=== PATIENT | male | born 1950 | race Two or more races ===

== ENCOUNTER 2023-10-31 17:39 | Emergency (ER) | payer OTHER ==
[~2023-10-31] VITALS: Ht 172.7 cm; Wt 75.0 kg
[2023-10-31 18:48] LABS: Basophils # (auto) 0.1 10 ^3/uL (0-0.2); Basophils % (auto) 1.2 % (0.0-2.0); Chloride 107 mmol/L (98-107); Eosinophils # (auto) 0.2 10 ^3/uL (0-0.8); Eosinophils % (auto) 2.9 % (0.0-7.0); Hematocrit 44.1 % (41.0-53.0); Hemoglobin 14.5 g/dL (13.5-17.5); Lymphocytes # (auto) 1.8 10 ^3/uL (0.4-5.4); Lymphocytes % (auto) 27.7 % (10.0-50.0); Mean Corpuscular Hemoglobin 29.9 pg (28.0-32.0); Mean Corpuscular Volume 90.7 fL (80.0-100.0); Monocytes # (auto) 0.7 10 ^3/uL (0-1.3); Monocytes % (auto) 10.3 % (0.0-12.0); Neutrophils # (auto) 3.7 10 ^3/uL (1.6-8.6); Neutrophils % (auto) 57.9 % (37.0-80.0); Nucleated Red Blood Cells % 0.2 %; Potassium 4.4 mmol/L (3.5-5.1); Red Blood Cells 4.86 10^6/uL (4.5-5.90); Red Cell Distribution Width 14.4 % (11.8-14.3); Sodium 139 mmol/L (136-145); White Blood Cell 6.4 10^3/uL (4.4-10.8)
[2023-10-31 18:49] LABS: Anion Gap 4 (5-15); Carbon Dioxide 28 mmol/L (20-30)
[2023-10-31 18:50] LABS: Calcium 9.2 mg/dL (8.5-10.1)
[2023-10-31 18:54] LABS: Glucose 113 mg/dL (74-106)
[2023-10-31 18:55] LABS: BUN/Creatinine Ratio 17.7 (10.0-20.0); Blood Urea Nitrogen 17 mg/dL (9-23)
[2023-11-01 00:01] VITALS: BP 108/77; PULSE 87; RESP 20; TEMP 97.6; O2SAT 96
== END 2023-11-01 00:08 | disposition home or self-care (01) ==
LOC: EDBD 17:39 → ER 17:39
DX: I95.2 Hypotension due to drugs (principal); I10 Essential (primary) hypertension; Z88.1 Allergy status to other antibiotic agents
CPT/HCPCS: 36415; 71045; 80048; 83880; 84484; 85025; 93005